=== PATIENT | female | born 1975 | race Caucasian/White ===

== ENCOUNTER 2017-01-29 12:44 | Emergency (ER) | payer MEDICAID ==
[~2017-01-29] VITALS: Ht 157.5 cm; Wt 56.3 kg
[~2017-01-29 12:44] MED LIST: BACL10TA PO; FENO1TAB76 PO; HYDR-3133 PO; IBUP600T26 PO; ORTHTAB3 PO; SERT-129 PO; SYNT75TA PO; ZANTTAB9 PO; ZOFR4TAB3 SL
[2017-01-29 12:55] VITALS: BP 120/58; PULSE 62; RESP 16; TEMP 98.6; O2SAT 98
[2017-01-29] MEDS ORDERED: ULTR50TA5 PO (13:29)
[2017-01-29] MEDS ORDERED: BACT800T5 PO (13:29)
[2017-01-29] MEDS ORDERED: CLINDAMYCIN PHOS 600 MG/4 ML VIAL IM ONE (13:30)
--- NOTE | 2017-01-29 13:30 | PD ---
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 Problem/Complaint Time Seen by Provider: 13:21 Travel History International Travel<30 days: No Contact w/Intl Traveler<30days: No History of Present Illness HPI C/O LEFT BREAST REDNESS AND SWELLING FOR PAST WEEK OR SO, 09/05, NO DISCHARGE, NO FEVER, NO N/V/D/CP/ABD PAIN PFSH Past Medical History ?: Not LMP: 01/21/17 Social History Tobacco Use: Yes Allergies-Medications (Allergen,Severity, Reaction): Coded Allergies: No Known Allergies (Unverified , 01/29/17) Reported Meds & Prescriptions Reported Meds & Active Scripts Active Ortho Tri-Cyclen Lo (Norgestimate-Ethinyl Estradiol) Cycln Lo Tab 1 Tab PO DAILY Reported Zantac 75 (Ranitidine HCl) Tab 75 Mg PO BID Lioresal (Baclofen) 10 Mg Tab 10 Mg PO BID Zofran ODT (Ondansetron HCl) 4 Mg Tab 4 Mg SL Q6H PRN FOR NAUSEA/VOMITING Sertraline 100 mg (Sertraline HCl) 100 Mg Tab 1 Tab PO DAILY Synthroid 75 mcg (Levothyroxine Sodium) 75 Mcg Tab 75 Mcg PO DAILY Hydroxyzine Hcl (Hydroxyzine HCl) 25 Mg Tab 25 Mg PO Q8H PRN Tricor (Fenofibrate) 48 Mg Tab 48 Mg PO DAILY Ibuprofen 600 Mg Tab 600 Mg PO Q8H PRN Review of Systems Except as stated in HPI: all other systems reviewed are Neg Skin: Positive Lesions, Positive Breast Tenderness, Positive Breast Swelling Physical Exam Narrative GENERAL: SKIN: Warm and dry. LEFT PERIAREOLAR ERYTHEMA, AREA OF INDURATION NICKEL SIZE, NO DRAINAGE , NO STREAKING. HEAD: Atraumatic. Normocephalic. EYES: Pupils equal and round. No scleral icterus. No injection or drainage. ENT: No nasal bleeding or discharge. Mucous membranes pink and moist. NECK: Trachea midline. No JVD. CARDIOVASCULAR: Regular rate and rhythm. RESPIRATORY: No accessory muscle use. Clear to auscultation. Breath sounds equal bilaterally. GASTROINTESTINAL: Abdomen soft, non-tender, nondistended. MUSCULOSKELETAL: Extremities without clubbing, cyanosis, or edema. No obvious deformities. NEUROLOGICAL: Awake and alert. No obvious cranial nerve deficits. Motor grossly within normal limits. Five out of 5 muscle strength in the arms and legs. Normal speech. PSYCHIATRIC: Appropriate mood and affect; insight and judgment normal. Data Data Last Documented VS Vital Signs Date Time Temp Pulse Resp B/P (MAP) Pulse Ox O2 Delivery O2 Flow Rate FiO2 01/29/17 12:55 98.6 62 16 120/58 (78) 98 Orders Orders Clindamycin Inj (Cleocin Inj) (01/29/17 13:30) MDM Medical Decision Making Medical Screen Exam Complete: Yes Emergency Medical Condition: Yes Medical Record Reviewed: Yes Differential Diagnosis CELLULITIS V ABSCESS V LYMPHANGITIS Narrative Course AFTER EXAMINATION NO E/O ABSCESS OR LYMPHANGITIS, AT THIS POINT PATIENT TOLERATING PO, NONTOXIC WILL D/C HOME ON PO ABX Diagnosis Primary Impression: Cellulitis of left breast Patient Instructions: Cellulitis (ED), General Instructions Scripts Tramadol (Ultram) 50 Mg Tab 50 MG PO Q4H Y for PAIN, #20 TAB 0 Refills Prov: Benton Barney MD 01/29/17 Sulfamethoxazole-Trimethoprim (Bactrim DS) 800-160 Mg Tab 1 TAB PO BID for Infection, #20 TAB 0 Refills Prov: Benton Bareny MD 01/29/17 Disposition: 01 DISCHARGE HOME Condition: Stable Benton Barney MD Jan 29, 2017 13:30
[2017-01-29 13:54] VITALS: BP 115/60; PULSE 56; RESP 16; O2SAT 97
== END 2017-01-29 14:28 | disposition home or self-care (01) ==
LOC: PHED 12:44
DX: N61.0 Mastitis without abscess (principal)
CPT/HCPCS: 96372